=== PATIENT | male | born 1945 ===

== ENCOUNTER → 2018-10-26 | Outpatient (REF) | payer MEDICARE ==
[2018-10-26 19:25] LABS: PERCENT SATURATION 28.7 % (19.7-50.0)
[2018-10-26 19:56] LABS: FOLATE 9.3 NG/ML
[2018-10-31 14:10] LABS: Methylmalonic Acid 394 nmol/L (0-378)
== END ==
LOC: M LAB REF 17:38
PROVIDERS: ATTEND Internal Medicine Nephrology
DX: D64.9 Anemia, unspecified (principal)

== ENCOUNTER → 2019-08-14 | Outpatient (REF) | payer MEDICARE | LOC: M LAB REF 17:00 | PROVIDERS: ATTEND Internal Medicine Nephrology | DX: D51.9 Vitamin B12 deficiency anemia, unspecified (principal) ==